=== PATIENT | female | born 1975 | race Caucasian/White ===

== ENCOUNTER 2018-05-04 19:18 | Emergency (ER) | payer SELFPAY ==
[~2018-05-04] VITALS: Ht 167.6 cm; Wt 89.5 kg
[2018-05-04 19:25] VITALS: BP 127/87
--- NOTE | 2018-05-04 19:30 | NUR ---
PATIENT AMBULATED TO ER BED 5.
--- NOTE | 2018-05-04 19:50 | NUR ---
42/F CAME IN ED, S/P FALL, PT STATED SHE SLIPPED IN THE LAUNDRY, PT FELL ON HER KNEES. PT REPORTS R GREATER THAN L KNEE PAIN, 02/24. SLIGHT SWELLING NOTED ON R KNEE, PT REPORTS PAIN RADIATES TO R THIGH. PT DENIES ANY HEAD TRAUMA, LOC, N/V. AOX4, AMBULATORY, RR EVEN AND UNLABORED. DENIES MED HX, RX.
--- NOTE | 2018-05-04 20:35 | NUR ---
ER AT BEDSIDE
--- NOTE | 2018-05-04 20:53 | NUR ---
PT RESTING IN BED, RR EVEN AND UNLABORED. VSS, PT REPORTS 8/10 R KNEE PAIN. ALL NEEDS MET.
[2018-05-04] MEDS ORDERED: IBUPROFEN 600 MG TAB PO ONE (21:05)
--- NOTE | 2018-05-04 21:59 | NUR ---
EDWINA WRAP APPLIED TO PT R KNEE. +CSM
[2018-05-04 22:23] VITALS: BP 133/83
== END 2018-05-04 22:23 | disposition home or self-care (01) ==
LOC: MED 19:18
DX: S80.01XA Contusion of right knee, initial encounter (principal); M25.462 Effusion, left knee; W19.XXXA Unspecified fall, initial encounter; Y93.E2 Activity, laundry; Y92.89 Other specified places as the place of occurrence of the external cause; Y99.8 Other external cause status
CPT/HCPCS: 73562; 81002; 81025; 99284; Q0092